=== PATIENT | female | born 1945 | race Caucasian/White ===

== ENCOUNTER 2020-04-17 06:00 | Day surgery (SDC) | payer OTHER ==
[~2020-04-17 06:00] MED LIST: AVAPRO75 MG PO; METFORMIN HCL1000 M2 PO; PLAVIX75 MG PO; TOPROL XL50 M1 PO
[2020-04-17] MEDS ORDERED: PERCOCET 5-3251 EACH PO (11:28)
== END 2020-04-17 14:05 | disposition home or self-care (01) ==
LOC: CIR.AMB 06:00 → ADM 08:45 → CIR.AMB 14:05
PROVIDERS: ATTEND Surgery
DX: C50.412 Malignant neoplasm of upper-outer quadrant of left female breast (principal)
CPT/HCPCS: 36561; C1751

== ENCOUNTER 2022-06-13 06:58 | Day surgery (SDC) | payer OTHER ==
[~2022-06-13] VITALS: Ht 157.5 cm; Wt 61.2 kg
[~2022-06-13 06:58] MED LIST changes: +FARXIGA5 MG PO; +FEMARA2.5 MG PO; +PERCOCET 5-3251 EACH PO
[2022-06-13] MEDS ORDERED: ULTRACET PO (09:50)
== END 2022-06-13 12:10 | disposition home or self-care (01) ==
LOC: CIR.AMB 06:58
PROVIDERS: ATTEND Surgery
DX: C50.412 Malignant neoplasm of upper-outer quadrant of left female breast (principal); Z88.8 Allergy status to other drugs, medicaments and biological substances; J45.909 Unspecified asthma, uncomplicated; I10 Essential (primary) hypertension; Z79.84 Long term (current) use of oral hypoglycemic drugs; E11.9 Type 2 diabetes mellitus without complications